=== PATIENT | male | born 1965 | race Two or more races ===

== ENCOUNTER 2017-02-10 09:47 | Emergency (ER) | payer OTHER ==
[~2017-02-10] VITALS: Ht 160 cm; Wt 63.5 kg
[~2017-02-10 09:47] MED LIST: UNOBMED
[2017-02-10] MEDS ORDERED: TdaP Vaccine 0.5ml Syr IM ONE (10:30)
[2017-02-10] MEDS ORDERED: Lidocaine 1% Plain 30 ml INJ ONE (10:45)
[2017-02-10 10:55] VITALS: BP 146/94
--- NOTE | 2017-02-10 11:09 | Diagnostic Imaging Report ---
Indication: pain Findings: 3 views of the left hand were obtained. There is slight volar tilt of the lunate. Not certain that this is due to flexion as the wrist is somewhat flexed. There is no acute fracture. Impression: No acute injury. Volar tilt of the lunate which is probably on the basis of flexion of the wrist
[2017-02-10] MEDS ORDERED: Bacitracin Oint UD TOPIC ONE (11:33)
[2017-02-10] MEDS ORDERED: IBUPROFEN600 MG ORAL (11:49)
[2017-02-10 12:00] VITALS: BP 140/89
[2017-02-10 12:01] VITALS: BP 140/89
--- NOTE | 2017-02-10 15:28 | Emergency Room Report ---
History of Present Illness General Chief Complaint: Laceration Source: Patient Present Illness HPI 51-year-old male presents ED with laceration to left index finger. States while working today he accidentally closed a car door onto his left hand. States he cut his left index finger. Tetanus unknown. Denies any other injuries. Pain is a 2/10, throbbing, nonradiating. No other aggravating or relieving factors. Denies any other associated symptoms Allergies: Coded Allergies: No Known Allergies (Unverified , 03/11/16) Patient History Past Medical History: HTN Past Surgical History: none Pertinent Family History: none Social History: Denies: alcohol use, drug use, smoking Immunizations: UTD Reviewed Nursing Documentation: PMH: Agreed, PSxH: Agreed Nursing Documentation-PMH Past Medical History: No Stated History Hx Hypertension: Yes Review of Systems All Other Systems: negative except mentioned in HPI Physical Exam Vital Signs Date Time Temp Pulse Resp B/P Pulse Ox O2 Delivery O2 Flow Rate FiO2 02/10/17 09:55 97.7 87 20 146/94 100 Room Air Sp02 EP Interpretation: reviewed, normal General Appearance: no apparent distress, alert, GCS 15, non-toxic Head: normocephalic Eyes: bilateral eye PERRL, bilateral eye normal inspection ENT: normal ENT inspection Neck: normal inspection Respiratory: normal inspection Cardiovascular #1: normal inspection Gastrointestinal: normal inspection Rectal: deferred Genitourinary: no CVA tenderness Musculoskeletal: tender - L index finger pain/bruising Neurologic: alert, oriented x3, responsive, motor strength/tone normal, sensory intact, speech normal Psychiatric: normal inspection Skin: other - 1cm laceration to distal aspect L index finger Lymphatic: normal inspection Procedures Laceration/Wound Repair Laceration/Wound Repair : Consent: Verbal Wound Location: upper extremity - L index finger Wound's Depth, Shape: flap Wound Explored: clean Betadine Prep?: Yes Anesthesia: 1% Lidocaine Wound Debrided: moderate Wound Repaired With: sutures Suture Size/Type: 5:0, proline Layer Closure?: No Sterile Dressing Applied?: Yes Splint Applied?: No Sling Applied?: No Patient Tolerated: Well Complications: None Medical Decision Making Diagnostic Impression: Primary Impression: Laceration ER Course Hospital Course 51-year-old M presents to ED s/p laceration L index finger s/p slamming car door Clinical course Patient placed on stretcher. After initial history and physical I ordered tetanus shot and xray L hand L hand xray negative for acute fx/dislocation wound irrigated. Anesthesia provided with lidocaine. Laceration repaired w/o complication. Dressing applied. Diagnosis - laceration Stable and discharged to home. wound Care instructions given. Followup with PMD in 7-10 days for suture removal. Return to ED if any signs of infection develop Other X-Ray Diagnostic Results Other X-Ray Diagnostic Results : X-Ray Ordered: L hand EP Interpretation: No Findings: no fractures, no dislocation, no soft tissue swelling Number of Views: 3 Last Vital Signs Date Time Temp Pulse Resp B/P Pulse Ox O2 Delivery O2 Flow Rate FiO2 02/10/17 12:01 97.7 73 20 140/89 100 Room Air Status: improved Disposition: HOME, SELF-CARE Condition: Stable Scripts Ibuprofen* (MOTRIN*) 600 Mg Tablet 600 MG ORAL Q8H Y for For Pain, #30 TAB 0 Refills Prov: YOMAIRA MTZ M.D. 02/10/17 Departure Forms: Return to Work Return to Work Date: February 12, 2017 Work Restrictions: No Heavy Lifting Patient Instructions: Laceration Care, Adult YOMAIRA MTZ M.D. February 10, 2017 15:28
== END 2017-02-10 12:04 | disposition home or self-care (01) ==
LOC: EMR 10:30
DX: S61.211A Laceration without foreign body of left index finger without damage to nail, initial encounter (principal); W23.0XXA Caught, crushed, jammed, or pinched between moving objects, initial encounter; Y92.810 Car as the place of occurrence of the external cause; Z23 Encounter for immunization; I10 Essential (primary) hypertension
CPT/HCPCS: 90471; 90715; 96372